=== PATIENT | male | born 1960 | race Two or more races ===

== ENCOUNTER 2025-02-15 08:30 | Outpatient (RCR) | payer OTHER, SELFPAY ==
--- NOTE | 2025-02-15 09:03 | PTNOTE_ITS ---
PT OP Initial Eval Patient Information Outpatient Physical Therapy Treatment Date: 02/15/25 Visit Reasons: LUMBAR RADICULOPATHY Medical Diagnosis: M54.16 Treatment Dx #1: R LE radiculopathy Start of Care: 02/15/25 Date of Onset: 1 month ago Smoking Status Smoking Status: Unknown if ever smoked Initial Assessment Subjective: Pt is 64 yr old male who reports sudden onset of R LE pain and the R toes are numb. Increased pain with sitting and bending. This limits R LE movement with HH chores. He denies LBP. PMH: HTN, gout Imaging: none Pt goal: to get rid of the R LE pain Objective: ?Trunk ArOM: ? B SB 50% of normal with pain ? Extension: 70% of full ? Flexion: 5 from floor with mild pull in posterior t high/hamstring on R ? B rotation: 60% ? TTP: R glute and hamstring along sciatic pathway ? Neuro: R SLR: positive Assessment: ? Pt presents with trunk flexion sensitivity and overlying myofascial pain ? and TTP around L5-S1 consistent with ? lower lumbar disc bulge(s) with R LE radiculopathy. Pt requires skilled therapy in order to decrease ? pain and meet goals and has fair rehab potential. Eval followed by HEP printout. 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 Ind with HEP ? 2. Improved sitting/standing tolerance to 30 minutes with <=4/10 LBP ? 3. Improved yardwork tolerance to at least 60 minutes with <=3/10 LBP and no ?increase in LE ssx ? Treatment Plan 1. Manual therapy ? 2. Therex ? 3. Modalities as indicated, moist heat, ice, estim, mechanical traction Frequency and Duration: 1-2x a week for 12 sessions plus the evaluation Certification Dates: 02/15/25 to 05/16/25 Procedure Charges OP PT Eval Mod Complex 30 minutes: Yes
== END 2025-02-20 23:59 | disposition home or self-care (01) ==
LOC: CPTX 08:30
PROVIDERS: PCP Nurse Practitioner; Referring Provider Nurse Practitioner; Visit Provider Nurse Practitioner
DX: M54.16 Radiculopathy, lumbar region (principal); I10 Essential (primary) hypertension
CPT/HCPCS: 97162

== ENCOUNTER 2025-03-01 11:30 | Outpatient (RCR) | payer OTHER, SELFPAY ==
--- NOTE | 2025-02-22 09:02 | PT.ODAYNRPT ---
PT Outpatient Daily Note OP Daily Note Outpatient Physical Therapy Treatment Date: 02/22/25 Visit Reasons: lumbar radiculopathy Subjective: Doing HEP with some pain relief Objective: See f/S for therex Assessment: Good response to lumbar extension progression to lessen LE pain Plan: Continue per POC Length of Time (minutes) of Treatment: 30 Minutes Procedure Charges Therapeutic Exercise 30 minutes: Yes
--- NOTE | 2025-03-01 12:06 | PT.ODAYNRPT ---
PT Outpatient Daily Note OP Daily Note Outpatient Physical Therapy Treatment Date: 03/01/25 Visit Reasons: lumbar radiculopathy Subjective: Doing HEP with some pain relief Objective: See f/S for therex Assessment: Good response to lumbar extension progression to lessen LE pain Plan: Continue per POC after he returns from vacation in March Length of Time (minutes) of Treatment: 30 Minutes Procedure Charges Therapeutic Exercise 30 minutes: Yes
== END 2025-03-23 23:59 | disposition home or self-care (01) ==
LOC: CPTX 11:30
PROVIDERS: PCP Nurse Practitioner; Referring Provider Nurse Practitioner; Visit Provider Nurse Practitioner
DX: M54.16 Radiculopathy, lumbar region (principal)
CPT/HCPCS: 97110